=== PATIENT | female | born 1990 | race Two or more races ===

== ENCOUNTER 2017-09-26 15:55 | Emergency (ER) | payer MEDICAID ==
[~2017-09-26] VITALS: Ht 165.1 cm; Wt 49.0 kg
[2017-09-26 16:12] VITALS: BP 131/95
[2017-09-26] MEDS ORDERED: CYCL-1 PO (18:53)
[2017-09-26] MEDS ORDERED: LIDO30CR23 TOP (18:53)
== END 2017-09-26 19:04 | disposition home or self-care (01) ==
LOC: ER 15:55
DX: S20.212A Contusion of left front wall of thorax, initial encounter (principal); M43.6 Torticollis; F12.10 Cannabis abuse, uncomplicated; V49.9XXA Car occupant (driver) (passenger) injured in unspecified traffic accident, initial encounter; Y93.89 Activity, other specified; Y92.89 Other specified places as the place of occurrence of the external cause; Y99.8 Other external cause status
CPT/HCPCS: 36415; 71046; 76882; 84484; 99285

== ENCOUNTER 2019-11-17 21:48 | Emergency (ER) | payer MEDICAID ==
[~2019-11-17] VITALS: Ht 165.1 cm; Wt 65.9 kg
[~2019-11-17 21:48] MED LIST: CYCL-1 PO; LIDO30CR23 TOP
[2019-11-17] MEDS ORDERED: normal saline 1000ml 1,000 ML IV ONE (22:55)
[2019-11-17 23:46] VITALS: BP 120/70
== END 2019-11-17 23:48 ==
LOC: ER 21:49
DX: S00.83XA Contusion of other part of head, initial encounter (principal); M54.2 Cervicalgia; F12.90 Cannabis use, unspecified, uncomplicated; Z72.89 Other problems related to lifestyle; Z79.899 Other long term (current) drug therapy; V98.8XXA Other specified transport accidents, initial encounter; Y93.89 Activity, other specified; Y92.89 Other specified places as the place of occurrence of the external cause; Y99.8 Other external cause status
CPT/HCPCS: 70450; 72125; 93005; 99285; J7030

== ENCOUNTER 2023-10-27 15:43 | Inpatient (IN) | payer MEDICAID ==
[~2023-10-27] VITALS: Ht 165.1 cm; Wt 50.1 kg
[~2023-10-27 15:43] MED LIST changes: +LIDO30CR TOP; -LIDO30CR23 TOP
[2023-10-27 17:00] LABS: APTT 24 SECONDS (22-32); INR 1.1 INR; PROTHROMBIN TIME 12.2 SECONDS (9.0-12.0)
[2023-10-27 17:24] LABS: ALANINE AMINOTRANSFERASE 19 U/L (12-78); ALBUMIN 2.2 G/DL (3.4-5.0); ALBUMIN/GLOBULIN RATIO 0.4 (1.1-1.5); ALKALINE PHOSPHATASE 106 IU/L (46-116); ANION GAP 10 (8-16); ASPARTATE AMINO TRANSFERASE 33 U/L (10-37); BLOOD UREA NITROGEN 3 MG/DL (7-18); BUN/CREATININE RATIO 4.7 (10.0-20.0); CHLORIDE 104 MMOL/L (99-107); CREATININE 0.64 MG/DL (0.40-0.90); GLUCOSE 155 MG/DL (70-104); LIPASE 58 U/L (16-77); POTASSIUM 3.3 MMOL/L (3.5-5.1); SODIUM 135 MMOL/L (135-145); TOTAL CARBON DIOXIDE 20.8 MMOL/L (24-32); TOTAL PROTEIN 7.6 G/DL (6.4-8.2); eCRCL 116 ML/MIN; eGFR > 90 ML/MIN
[2023-10-27 17:48] LABS: BASOPHILS % (AUTO) 0.3 % (0-1); EOSINOPHILS # (AUTO) 0.1 X10'3 (0-0.9); EOSINOPHILS % (AUTO) 1.1 % (0-6); LYMPHOCYTES # (AUTO) 0.9 X10'3 (1.1-4.8); LYMPHOCYTES % (AUTO) 19.6 % (21-51); MEAN PLATELET VOLUME 8.4 FL (7.4-10.4); MONOCYTES # (AUTO) 0.4 X10'3 (0-0.9); MONOCYTES % (AUTO) 8.3 % (2-12); NEUTROPHILS # (AUTO) 3.4 X10'3 (1.8-7.7); NEUTROPHILS % (AUTO) 70.7 % (42-75); PLATELET COUNT 434 X10'3 (140-440); WHITE BLOOD COUNT 4.7 X10'3 (4.5-11.0)
[2023-10-27 17:50] LABS: MEAN CORPUSCULAR HEMOGLOBIN 21.9 PG (27.0-31.0); MEAN CORPUSCULAR HGB CONC 32.2 g/dL (33.0-36.5); MEAN CORPUSCULAR VOLUME 68.1 FL (78-98); RED BLOOD COUNT 2.78 X10'6 (4.20-5.60); RED CELL DISTRIBUTION WIDTH 19.9 % (11.5-14.5)
[2023-10-27 17:56] LABS: HEMOGLOBIN 6.1 g/dl (12.0-16.0)
[2023-10-27 20:02] LABS: BILIRUBIN,URINE MODERATE (Neg); CLARITY,URINE SLIGHTLY CLOUDY (Clear); GLUCOSE, URINE NEGATIVE (Neg); KETONES,URINE NEGATIVE (Neg); LEUKOCYTE ESTERASE ,URINE TRACE (Neg); NITRITES, URINE NEGATIVE (Neg); OCCULT BLOOD,URINE NEGATIVE (Neg); PROTEIN,URINE TRACE mg/dl (Neg); UROBILINOGEN,URINE 0.2 E.U/dL (0.2-1.0)
[2023-10-27 20:03] LABS: URINE HCG NEGATIVE (NEG)
[2023-10-27 20:04] LABS: COLOR,URINE DARK YELLOW (Yellow); UA COLLECTION TYPE CLN CATCH MIDSTREAM
[2023-10-27 20:20] LABS: BACTERIA,URINE FEW /HPF (Neg); MUCUS STRANDS FEW /LPF (Neg); SQUAMOUS EPITHELIAL CELL,UR FEW /LPF (FEW)
[2023-10-27] MEDS ORDERED: mag hydrox/Alum hydrox/simeth 30ml oral suspension PO PRN (21:55)
[2023-10-27] MEDS ORDERED: magnesium hydroxide 30ml (MOM) UD suspension PO PRN (21:55)
[2023-10-27] MEDS ORDERED: magnesium 2GM in 50ml NS 50 ML IV PRN (21:55)
[2023-10-27] MEDS ORDERED: magnesium Cl slow-release 64mg tablet PO PRN (21:55)
[2023-10-27] MEDS ORDERED: magnesium 4gm in 100ml NS 100 ML IV PRN (21:55)
[2023-10-27] MEDS: morphine 2 MG/ML inj. syringe IV ONE (21:55)
[2023-10-27] MEDS ORDERED: potassium Cl 40MEQ/1/2NS 520ml 520 ML IV PRN (21:55)
[2023-10-27] MEDS ORDERED: ondansetron/PF 4mg/2ml inj IV PRN (21:55)
[2023-10-27] MEDS ORDERED: furosemide 10 MG/1 ML 10ml inj IV ONE (21:55)
[2023-10-27 22:25] LABS: MAGNESIUM 1.6 MG/DL (1.5-2.4); PHOSPHORUS 3.1 MG/DL (2.3-4.5)
[2023-10-27 22:50] VITALS: BP 100/71; PULSE 107; RESP 20; TEMP 98.3
[2023-10-27 22:52] VITALS: BP 100/71; PULSE 105; RESP 18; TEMP 98.3
[2023-10-27 23:10] VITALS: BP 112/67; PULSE 104; RESP 20; TEMP 98.2
[2023-10-27] MEDS ORDERED: [UNRECOGNIZED DRUG - CODE] (23:13)
[2023-10-28] VITALS (11 sets, daily range): BP systolic 108–127; BP diastolic 71–92; PULSE 89–106; RESP 16–26; TEMP 97.9–98.6; O2SAT 96–99
[2023-10-28] MEDS: CefTRIAXone/D5W-Rocephin 1gm 50 ML IV SCH (00:02)
[2023-10-28] MEDS: furosemide 10 MG/1 ML 10ml inj IV ONE (00:53)
[2023-10-28] MEDS: morphine 2 MG/ML inj. syringe IV PRN (00:54)
[2023-10-28] MEDS: potassium Cl 20 mEq SR tablet PO PRN ×2 (00:54→05:35)
[2023-10-28 04:03] LABS: MEAN CORPUSCULAR VOLUME 74.3 FL (78-98); RED CELL DISTRIBUTION WIDTH 21.6 % (11.5-14.5); WHITE BLOOD COUNT 5.6 X10'3 (4.5-11.0)
[2023-10-28 04:05] LABS: BASOPHILS # (AUTO) 0.1 X10'3 (0-0.2); BASOPHILS % (AUTO) 1.8 % (0-1); EOSINOPHILS # (AUTO) 0.1 X10'3 (0-0.9); EOSINOPHILS % (AUTO) 2.5 % (0-6); LYMPHOCYTES # (AUTO) 1.2 X10'3 (1.1-4.8); LYMPHOCYTES % (AUTO) 21.2 % (21-51); MEAN CORPUSCULAR HEMOGLOBIN 22.3 PG (27.0-31.0); MEAN PLATELET VOLUME 8.2 FL (7.4-10.4); MONOCYTES # (AUTO) 0.7 X10'3 (0-0.9); MONOCYTES % (AUTO) 12.3 % (2-12); NEUTROPHILS # (AUTO) 3.5 X10'3 (1.8-7.7); NEUTROPHILS % (AUTO) 62.2 % (42-75); PLATELET COUNT 320 X10'3 (140-440); RED BLOOD COUNT 2.89 X10'6 (4.20-5.60)
[2023-10-28 04:08] LABS: HEMOGLOBIN 6.4 g/dl (12.0-16.0)
[2023-10-28 04:09] LABS: HEMATOCRIT 21.4 % (35.0-45.0)
[2023-10-28 04:15] LABS: ALANINE AMINOTRANSFERASE 13 U/L (12-78); ALBUMIN/GLOBULIN RATIO 0.4 (1.1-1.5); ALKALINE PHOSPHATASE 99 IU/L (46-116); ANION GAP 11 (8-16); ASPARTATE AMINO TRANSFERASE 30 U/L (10-37); BILIRUBIN,TOTAL 1.9 MG/DL (0.1-1.0); BLOOD UREA NITROGEN 2 MG/DL (7-18); BUN/CREATININE RATIO 3.5 (10.0-20.0); CALCIUM 7.6 MG/DL (8.5-10.1); CHLORIDE 102 MMOL/L (99-107); CREATININE 0.57 MG/DL (0.40-0.90); GLUCOSE 113 MG/DL (70-104); SODIUM 134 MMOL/L (135-145); TOTAL CARBON DIOXIDE 21.4 MMOL/L (24-32); eCRCL 130 ML/MIN; eGFR > 90 ML/MIN
[2023-10-28 04:25] LABS: POTASSIUM 2.9 MMOL/L (3.5-5.1)
[2023-10-28 05:01] LABS: ANISOCYTOSIS 3+; MICROCYTOSIS 1+; PLATELET ESTIMATE NORMAL
[2023-10-28 05:02] LABS: HYPOCHROMASIA 1+
[2023-10-28 05:03] LABS: ELLIPTOCYTES FEW; TEAR DROP CELLS FEW
[2023-10-28] MEDS ORDERED: spironolactone 25 MG tablet PO SCH (08:30)
[2023-10-28 08:40] LABS: HEMOGLOBIN A1C 4.6 % (4.5-6.2)
[2023-10-28] MEDS: pantoprazole 40 MG vial IV SCH (08:52)
[2023-10-28] MEDS: K and/or MAG REPLACEMENT MC SCH (08:53)
[2023-10-28] MEDS: furosemide 10 MG/1 ML 10ml inj IV SCH ×2 (09:41→22:58)
[2023-10-28] MEDS: spironolactone 25 MG tablet PO SCH (09:42)
[2023-10-28 13:14] LABS: BASOPHILS % (AUTO) 0.6 % (0-1); EOSINOPHILS # (AUTO) 0.1 X10'3 (0-0.9); HEMATOCRIT 25.9 % (35.0-45.0); LYMPHOCYTES # (AUTO) 1.1 X10'3 (1.1-4.8); LYMPHOCYTES % (AUTO) 19.2 % (21-51); MEAN CORPUSCULAR HEMOGLOBIN 23.8 PG (27.0-31.0); MEAN CORPUSCULAR HGB CONC 30.7 g/dL (33.0-36.5); MEAN CORPUSCULAR VOLUME 77.5 FL (78-98); MEAN PLATELET VOLUME 8.1 FL (7.4-10.4); MONOCYTES # (AUTO) 0.6 X10'3 (0-0.9); MONOCYTES % (AUTO) 10.3 % (2-12); NEUTROPHILS # (AUTO) 3.9 X10'3 (1.8-7.7); NEUTROPHILS % (AUTO) 67.9 % (42-75); PLATELET COUNT 304 X10'3 (140-440); RED BLOOD COUNT 3.35 X10'6 (4.20-5.60); RED CELL DISTRIBUTION WIDTH 24.5 % (11.5-14.5); WHITE BLOOD COUNT 5.7 X10'3 (4.5-11.0)
[2023-10-28] MEDS ORDERED: BENZ-111 PO (16:38)
[2023-10-28 19:39] LABS: HEMATOCRIT 27.5 % (35.0-45.0); HEMOGLOBIN 8.7 g/dl (12.0-16.0); MEAN CORPUSCULAR HEMOGLOBIN 24.3 PG (27.0-31.0); MEAN CORPUSCULAR HGB CONC 31.6 g/dL (33.0-36.5); MEAN CORPUSCULAR VOLUME 76.9 FL (78-98); MEAN PLATELET VOLUME 8.1 FL (7.4-10.4); PLATELET COUNT 306 X10'3 (140-440); RED BLOOD COUNT 3.58 X10'6 (4.20-5.60); RED CELL DISTRIBUTION WIDTH 24.3 % (11.5-14.5); WHITE BLOOD COUNT 6.6 X10'3 (4.5-11.0)
[2023-10-28] MEDS: propranolol 10mg tablet PO SCH (20:54)
[2023-10-29] VITALS (7 sets, daily range): BP systolic 97–115; BP diastolic 61–72; PULSE 80–93; RESP 15–19; TEMP 98–98.7; O2SAT 95–100
[2023-10-29 06:58] LABS: EOSINOPHILS # (AUTO) 0.2 X10'3 (0-0.9); NEUTROPHILS # (AUTO) 4.3 X10'3 (1.8-7.7)
[2023-10-29 07:01] LABS: ABSOLUTE RETICS # 85400 /CUMM (23000-93000); BASOPHILS % (AUTO) 0.2 % (0-1); EOSINOPHILS % (AUTO) 2.6 % (0-6); HEMATOCRIT 26.4 % (35.0-45.0); HEMOGLOBIN 8.2 g/dl (12.0-16.0); LYMPHOCYTES # (AUTO) 1.2 X10'3 (1.1-4.8); LYMPHOCYTES % (AUTO) 18.1 % (21-51); MEAN CORPUSCULAR HEMOGLOBIN 23.9 PG (27.0-31.0); MEAN CORPUSCULAR VOLUME 77.1 FL (78-98); MEAN PLATELET VOLUME 8.2 FL (7.4-10.4); MONOCYTES # (AUTO) 0.8 X10'3 (0-0.9); MONOCYTES % (AUTO) 12.3 % (2-12); NEUTROPHILS % (AUTO) 66.8 % (42-75); PLATELET COUNT 299 X10'3 (140-440); RED BLOOD COUNT 3.43 X10'6 (4.20-5.60); RED CELL DISTRIBUTION WIDTH 24.2 % (11.5-14.5); RETICULOCYTE % (AUTO) 2.5 % (0.5-1.5); WHITE BLOOD COUNT 6.4 X10'3 (4.5-11.0)
[2023-10-29 07:03] LABS: HEMATOCRIT 26.6 % (35.0-45.0); MEAN CORPUSCULAR HGB CONC 30.9 g/dL (33.0-36.5); MEAN CORPUSCULAR VOLUME 77.5 FL (78-98); MEAN PLATELET VOLUME 8.6 FL (7.4-10.4); PLATELET COUNT 307 X10'3 (140-440); RED BLOOD COUNT 3.43 X10'6 (4.20-5.60); RED CELL DISTRIBUTION WIDTH 24.4 % (11.5-14.5); WHITE BLOOD COUNT 6.3 X10'3 (4.5-11.0)
[2023-10-29 07:22] LABS: % IRON SATURATION 6 % (11-46); IRON 24 UG/DL (49-151); TOTAL IRON BINDING CAPACITY 396 UG/DL (259-388)
[2023-10-29 07:41] LABS: ALANINE AMINOTRANSFERASE 9 U/L (12-78); ALBUMIN 1.9 G/DL (3.4-5.0); ALBUMIN/GLOBULIN RATIO 0.4 (1.1-1.5); ALKALINE PHOSPHATASE 95 IU/L (46-116); ANION GAP 6 (8-16); ASPARTATE AMINO TRANSFERASE 30 U/L (10-37); BILIRUBIN,DIRECT 1.7 MG/DL (0-0.3); BILIRUBIN,TOTAL 2.4 MG/DL (0.1-1.0); BLOOD UREA NITROGEN 2 MG/DL (7-18); BUN/CREATININE RATIO 3.2 (10.0-20.0); CALCIUM 7.9 MG/DL (8.5-10.1); CHLORIDE 104 MMOL/L (99-107); CREATININE 0.63 MG/DL (0.40-0.90); FERRITIN 17 NG/ML (8-252); GLUCOSE 91 MG/DL (70-104); SODIUM 134 MMOL/L (135-145); TOTAL PROTEIN 6.9 G/DL (6.4-8.2); eCRCL 107 ML/MIN; eGFR > 90 ML/MIN
[2023-10-29 08:54] LABS: PLATELET ESTIMATE NORMAL
[2023-10-29 08:55] LABS: ANISOCYTOSIS 3+; HYPOCHROMASIA 1+; MICROCYTOSIS 1+; POLYCHROMASIA 1+
[2023-10-29 09:57] LABS: OCCULT BLOOD STOOL NEGATIVE (Neg)
[2023-10-29] MEDS: iron sucrose complex injection 300 MG in normal saline 250ml IV soln 250 ML IV SCH (11:11)
[2023-10-29] MEDS: HYDROcodone/acetaminophen 10/325mg tab PO PRN (11:26)
[2023-10-29 12:19] LABS: ALBUMIN,BODY FLUID 0.7 G/DL; GLUCOSE,BODY FLUID 114 MG/DL; LDH,BODY FLUID 41 U/L
[2023-10-29 12:25] LABS: HBSAG SCREEN Negative (Negative); HEPATITIS C VIRUS ANTIBODY Non Reactive (Non Reactive)
[2023-10-29 13:49] LABS: LYMPHOCYTES,BODY FLUID 47 %; MONOCYTES,BODY FLUID 51 %; NEUTROPHILS,BODY FLUID 2 %
[2023-10-29 13:52] LABS: BF MESOTHELIAL CELLS MODERATE; BF RBC COUNT 66 /CU MM; BF WBC COUNT 5 /CU MM (0-1000); BFAPPEAR CLEAR; BFCOLOR YELLOW; BFVOLUME 58 ML
[2023-10-29] MEDS: albumin (human) 25% 100 ML IV solution IV ONE (14:05)
[2023-10-29 14:42] LABS: BFSOURCE OTHER
[2023-10-29 16:57] LABS: HEMATOCRIT 27.4 % (35.0-45.0); HEMOGLOBIN 8.5 g/dl (12.0-16.0); MEAN CORPUSCULAR HEMOGLOBIN 24.3 PG (27.0-31.0); MEAN CORPUSCULAR HGB CONC 31.1 g/dL (33.0-36.5); MEAN PLATELET VOLUME 8.1 FL (7.4-10.4); PLATELET COUNT 301 X10'3 (140-440); RED BLOOD COUNT 3.51 X10'6 (4.20-5.60); RED CELL DISTRIBUTION WIDTH 24.7 % (11.5-14.5); WHITE BLOOD COUNT 5.2 X10'3 (4.5-11.0)
[2023-10-29] MEDS: morphine 2 MG/ML inj. syringe IV PRN (17:14)
[2023-10-30 07:17] LABS: BASOPHILS % (AUTO) 0.3 % (0-1); EOSINOPHILS # (AUTO) 0.3 X10'3 (0-0.9); HEMATOCRIT 27.8 % (35.0-45.0); HEMOGLOBIN 8.3 g/dl (12.0-16.0); LYMPHOCYTES # (AUTO) 1.2 X10'3 (1.1-4.8); MEAN CORPUSCULAR HEMOGLOBIN 23.4 PG (27.0-31.0); MEAN CORPUSCULAR HGB CONC 29.8 g/dL (33.0-36.5); MEAN CORPUSCULAR VOLUME 78.6 FL (78-98); MONOCYTES # (AUTO) 0.7 X10'3 (0-0.9); MONOCYTES % (AUTO) 11.4 % (2-12); NEUTROPHILS # (AUTO) 4.3 X10'3 (1.8-7.7); NEUTROPHILS % (AUTO) 66.3 % (42-75); PLATELET COUNT 293 X10'3 (140-440); RED BLOOD COUNT 3.54 X10'6 (4.20-5.60); RED CELL DISTRIBUTION WIDTH 25.6 % (11.5-14.5); WHITE BLOOD COUNT 6.5 X10'3 (4.5-11.0)
[2023-10-30 07:18] LABS: HEMATOCRIT 27.3 % (35.0-45.0); HEMOGLOBIN 8.3 g/dl (12.0-16.0); MEAN CORPUSCULAR HEMOGLOBIN 23.8 PG (27.0-31.0); MEAN CORPUSCULAR HGB CONC 30.5 g/dL (33.0-36.5); MEAN PLATELET VOLUME 8.3 FL (7.4-10.4); PLATELET COUNT 295 X10'3 (140-440); RED CELL DISTRIBUTION WIDTH 25.1 % (11.5-14.5); WHITE BLOOD COUNT 6.5 X10'3 (4.5-11.0)
[2023-10-30 07:34] LABS: ALANINE AMINOTRANSFERASE 15 U/L (12-78); ALBUMIN 2.2 G/DL (3.4-5.0); ALBUMIN/GLOBULIN RATIO 0.5 (1.1-1.5); ALKALINE PHOSPHATASE 83 IU/L (46-116); ANION GAP 6 (8-16); ASPARTATE AMINO TRANSFERASE 27 U/L (10-37); BILIRUBIN,TOTAL 1.9 MG/DL (0.1-1.0); BLOOD UREA NITROGEN 2 MG/DL (7-18); BUN/CREATININE RATIO 3.8 (10.0-20.0); CALCIUM 8.1 MG/DL (8.5-10.1); CHLORIDE 101 MMOL/L (99-107); CREATININE 0.52 MG/DL (0.40-0.90); GLUCOSE 109 MG/DL (70-104); POTASSIUM 3.3 MMOL/L (3.5-5.1); SODIUM 135 MMOL/L (135-145); TOTAL CARBON DIOXIDE 28.4 MMOL/L (24-32); TOTAL PROTEIN 6.9 G/DL (6.4-8.2); eCRCL 127 ML/MIN; eGFR > 90 ML/MIN
[2023-10-30 07:44] LABS: ANISOCYTOSIS 3+; MICROCYTOSIS 1+; PLATELET ESTIMATE NORMAL; POIKILOCYTOSIS FEW; POLYCHROMASIA FEW
[2023-10-30 08:00] VITALS: RESP 16; O2SAT 98
[2023-10-30] MEDS: pantoprazole 40mg Tablet.DR PO SCH (08:39)
[2023-10-30 08:57] VITALS: BP 153/100; PULSE 108; RESP 23; TEMP 99.3; O2SAT 100
[2023-10-30 11:00] VITALS: BP 92/65; PULSE 76; RESP 16; TEMP 97.6; O2SAT 96
[2023-10-30 11:26] VITALS: RESP 18
[2023-10-30] MEDS ORDERED: SPIR25TA PO (11:51)
[2023-10-30] MEDS ORDERED: ZOF4I IV (11:51)
[2023-10-30] MEDS ORDERED: PROP10TA10 PO (11:51)
[2023-10-30] MEDS ORDERED: PANT40TA54 PO (11:51)
[2023-10-30] MEDS ORDERED: HYDR-3972 PO (12:10)
[2023-10-30] MEDS ORDERED: spironolactone 50 MG tablet PO SCH (14:17)
== END 2023-10-30 14:20 | disposition home or self-care (01) | DRG 280 ==
LOC: ER 15:43 → UNDOADMIN 21:55 → ED HOLD 21:55 → PCU 3S 10-28 14:06
PROVIDERS: ADMIT Internal Medicine Critical Care Medicine; ATTEND Family Medicine
PROC: 30233N1 Transfusion of Nonautologous Red Blood Cells into Peripheral Vein, Percutaneous Approach (ICD-10-PCS; 2023-10-27)
PROC: 0W9G3ZZ Drainage of Peritoneal Cavity, Percutaneous Approach (ICD-10-PCS; principal; 2023-10-29)
DX: K70.31 Alcoholic cirrhosis of liver with ascites (principal); K72.90 Hepatic failure, unspecified without coma; K92.2 Gastrointestinal hemorrhage, unspecified; F31.9 Bipolar disorder, unspecified; D50.9 Iron deficiency anemia, unspecified; E87.6 Hypokalemia
CPT/HCPCS: 36415; 36430; 49083; 71045; 74176; 80053; 81001; 81025; 82042; 82103; 82248; 82272; 82390; 82728; 82945; 83036; 83540; 83550; 83615; 83690; 83735; 84100; 84132; 84157; 85008; 85025; 85027; 85045; 85610; 85730; 86803; 86885; 86900; 86901; 86920; 87070; 87075; 87081; 87088; 87340; 87522; 89051; 93005; 99285; C9113; G0378; J0696; J1756; J1940; J2270; J7040; J7050; P9016; P9047

== ENCOUNTER 2024-02-08 14:18 | Inpatient (IN) | payer MEDICAID ==
[~2024-02-08] VITALS: Ht 165.1 cm; Wt 50.5 kg
[2024-02-08] VITALS (7 sets, daily range): BP systolic 107–118; BP diastolic 70–80; PULSE 98–116; RESP 15–19; TEMP 98.2–99.5; O2SAT 98–99
[~2024-02-08 14:18] MED LIST changes: +BENZ-111 PO; -CYCL-1 PO; +HYDR-3972 PO; -LIDO30CR TOP; +PANT40TA54 PO; +PROP10TA10 PO; +SPIR25TA PO; +ZOF4I IV; +[UNRECOGNIZED DRUG - CODE]
[2024-02-08 15:08] LABS: BASOPHILS % (AUTO) 0.2 % (0-1); EOSINOPHILS # (AUTO) 0.1 X10'3 (0-0.9); EOSINOPHILS % (AUTO) 0.8 % (0-6); HEMATOCRIT 24.3 % (35.0-45.0); HEMOGLOBIN 7.8 g/dl (12.0-16.0); LYMPHOCYTES # (AUTO) 1.1 X10'3 (1.1-4.8); LYMPHOCYTES % (AUTO) 13.2 % (21-51); MEAN CORPUSCULAR HEMOGLOBIN 30.3 PG (27.0-31.0); MEAN CORPUSCULAR HGB CONC 32.2 g/dL (33.0-36.5); MEAN PLATELET VOLUME 9.6 FL (7.4-10.4); MONOCYTES # (AUTO) 0.6 X10'3 (0-0.9); MONOCYTES % (AUTO) 7.2 % (2-12); NEUTROPHILS # (AUTO) 6.7 X10'3 (1.8-7.7); NEUTROPHILS % (AUTO) 78.6 % (42-75); PLATELET COUNT 156 X10'3 (140-440); RED BLOOD COUNT 2.58 X10'6 (4.20-5.60); RED CELL DISTRIBUTION WIDTH 14.8 % (11.5-14.5); WHITE BLOOD COUNT 8.5 X10'3 (4.5-11.0)
[2024-02-08 15:22] LABS: ALANINE AMINOTRANSFERASE 24 U/L (12-78); ALBUMIN 3.2 G/DL (3.4-5.0); ALBUMIN/GLOBULIN RATIO 0.7 (1.1-1.5); ALKALINE PHOSPHATASE 76 IU/L (46-116); ANION GAP 13 (8-16); ASPARTATE AMINO TRANSFERASE 43 U/L (10-37); BILIRUBIN,TOTAL 2.2 MG/DL (0.1-1.0); BLOOD UREA NITROGEN 14 MG/DL (7-18); BUN/CREATININE RATIO 25.5 (10.0-20.0); CALCIUM 8.8 MG/DL (8.5-10.1); CHLORIDE 100 MMOL/L (99-107); CREATININE 0.55 MG/DL (0.40-0.90); GLUCOSE 96 MG/DL (70-104); POTASSIUM 4.1 MMOL/L (3.5-5.1); SODIUM 136 MMOL/L (135-145); TOTAL CARBON DIOXIDE 23.1 MMOL/L (24-32); TOTAL PROTEIN 7.7 G/DL (6.4-8.2); eCRCL 118 ML/MIN; eGFR > 90 ML/MIN
[2024-02-08 15:24] LABS: AMYLASE 18 U/L (25-115); APTT 25 SECONDS (22-32); INR 1.2 INR; LIPASE 35 U/L (16-77); PROTHROMBIN TIME 12.4 SECONDS (9.0-12.0)
[2024-02-08] MEDS ORDERED: potassium Cl 40MEQ/1/2NS 520ml 520 ML IV PRN (17:55)
[2024-02-08] MEDS ORDERED: acetaminophen 325mg tablet PO PRN ×2 (17:55)
[2024-02-08] MEDS ORDERED: magnesium sulf-water 2g/50mL 50 ML IV PRN (17:55)
[2024-02-08] MEDS ORDERED: morphine 2 MG/ML inj. syringe IV PRN ×2 (17:55)
[2024-02-08] MEDS ORDERED: potassium Cl 20 mEq SR tablet PO PRN ×2 (17:55)
[2024-02-08] MEDS ORDERED: ondansetron/PF 4mg/2ml inj IV PRN (17:55)
[2024-02-08] MEDS ORDERED: HYDROcodone/acetaminophen 5mg/325mg tablet PO PRN (17:55)
[2024-02-08] MEDS: normal saline 1000ml 1,000 ML IV SCH (18:50)
[2024-02-08] MEDS: pantoprazole 40 MG vial IV ONE (18:50)
[2024-02-08] MEDS: normal saline 1000ml 1,000 ML IVB ONE (18:50)
[2024-02-08 19:00] LABS: OCCULT BLOOD STOOL POSITIVE (Neg)
[2024-02-08 19:34] LABS: OCCULT BLOOD STOOL POSITIVE (Neg)
[2024-02-08] MEDS ORDERED: pantoprazole 40MG/NS 100ML BAG 100 ML IV SCH (21:00)
[2024-02-08] MEDS ORDERED: LORazepam 2 mg/ml vial IV PRN (21:45)
[2024-02-08] MEDS: LORazepam 1 MG tablet PO PRN (23:07)
[2024-02-09] VITALS (25 sets, daily range): BP systolic 94–125; BP diastolic 55–84; PULSE 86–109; RESP 15–25; TEMP 97.6–98.6; O2SAT 97–100
[2024-02-09] MEDS ORDERED: NO HOME MEDS (01:53)
[2024-02-09] MEDS: pantoprazole 40MG/NS 100ML BAG 100 ML IV SCH (04:32)
[2024-02-09 06:02] LABS: BASOPHILS % (AUTO) 0.1 % (0-1); EOSINOPHILS # (AUTO) 0.2 X10'3 (0-0.9); EOSINOPHILS % (AUTO) 3.3 % (0-6); HEMATOCRIT 22.7 % (35.0-45.0); HEMOGLOBIN 7.5 g/dl (12.0-16.0); LYMPHOCYTES % (AUTO) 13.5 % (21-51); MEAN CORPUSCULAR HEMOGLOBIN 30.8 PG (27.0-31.0); MEAN CORPUSCULAR HGB CONC 33.2 g/dL (33.0-36.5); MEAN CORPUSCULAR VOLUME 92.8 FL (78-98); MEAN PLATELET VOLUME 9.9 FL (7.4-10.4); MONOCYTES # (AUTO) 0.6 X10'3 (0-0.9); MONOCYTES % (AUTO) 7.6 % (2-12); NEUTROPHILS # (AUTO) 5.6 X10'3 (1.8-7.7); NEUTROPHILS % (AUTO) 75.5 % (42-75); PLATELET COUNT 75 X10'3 (140-440); RED BLOOD COUNT 2.45 X10'6 (4.20-5.60); RED CELL DISTRIBUTION WIDTH 14.7 % (11.5-14.5); WHITE BLOOD COUNT 7.4 X10'3 (4.5-11.0)
[2024-02-09 06:14] LABS: MAGNESIUM 1.6 MG/DL (1.5-2.4); PHOSPHORUS 2.3 MG/DL (2.3-4.5)
[2024-02-09] MEDS: multivitamins, therapeutics tablet PO SCH (07:57)
[2024-02-09] MEDS ORDERED: LIDOcaine 2% Viscous 15ml cup ONE (10:39)
[2024-02-09] MEDS ORDERED: fentaNYL/PF 50MCG/1 ML 2ML syringe ONE (11:08)
[2024-02-09] MEDS ORDERED: MIDAZolam 1 MG/ML 5ML VIAL ONE ×2 (11:08→11:22)
[2024-02-09] MEDS ORDERED: simethicone 40mg/0.6ml oral drops 30ml ONE (11:17)
[2024-02-09] MEDS: CefTRIAXone 2gm/D5W 50ml BAG 50 ML IV SCH (15:12)
[2024-02-09] MEDS: octreotide inj. 500 MCG in normal saline 100ml IV soln 97.5 ML IV SCH (15:14)
[2024-02-09 15:46] LABS: BASOPHILS % (AUTO) 0.1 % (0-1); EOSINOPHILS # (AUTO) 0.2 X10'3 (0-0.9); EOSINOPHILS % (AUTO) 3.1 % (0-6); HEMATOCRIT 22.8 % (35.0-45.0); HEMOGLOBIN 7.7 g/dl (12.0-16.0); LYMPHOCYTES # (AUTO) 0.7 X10'3 (1.1-4.8); LYMPHOCYTES % (AUTO) 14.6 % (21-51); MEAN CORPUSCULAR HEMOGLOBIN 31.2 PG (27.0-31.0); MEAN CORPUSCULAR HGB CONC 33.7 g/dL (33.0-36.5); MEAN CORPUSCULAR VOLUME 92.8 FL (78-98); MEAN PLATELET VOLUME 9.4 FL (7.4-10.4); MONOCYTES # (AUTO) 0.4 X10'3 (0-0.9); MONOCYTES % (AUTO) 7.7 % (2-12); NEUTROPHILS # (AUTO) 3.7 X10'3 (1.8-7.7); NEUTROPHILS % (AUTO) 74.5 % (42-75); PLATELET COUNT 63 X10'3 (140-440); RED BLOOD COUNT 2.46 X10'6 (4.20-5.60); RED CELL DISTRIBUTION WIDTH 14.8 % (11.5-14.5)
[2024-02-09 21:04] LABS: BILIRUBIN,URINE NEGATIVE (Neg); CLARITY,URINE CLEAR (Clear); COLOR,URINE YELLOW (Yellow); GLUCOSE, URINE 250 mg/dl (Neg); KETONES,URINE 15 mg/dl (Neg); LEUKOCYTE ESTERASE ,URINE TRACE (Neg); NITRITES, URINE NEGATIVE (Neg); OCCULT BLOOD,URINE TRACE-INTACT (Neg); PROTEIN,URINE NEGATIVE (Neg)
[2024-02-09 21:07] LABS: UA COLLECTION TYPE CLN CATCH MIDSTREAM; URINE HCG NEGATIVE (NEG)
[2024-02-09 21:23] LABS: BACTERIA,URINE FEW /HPF (Neg); MUCUS STRANDS NONE SEEN /LPF (Neg); RBC,URINE 0-2 /HPF (0-2); SQUAMOUS EPITHELIAL CELL,UR FEW /LPF (FEW); WBC,URINE 0-4 /HPF (0-4)
[2024-02-10 02:00] VITALS: BP 108/68; PULSE 105; RESP 18; TEMP 97.8; O2SAT 99
[2024-02-10 06:00] VITALS: BP 126/69; PULSE 89; RESP 16; TEMP 97.5; O2SAT 96
[2024-02-10 06:56] LABS: BASOPHILS % (AUTO) 0.1 % (0-1); EOSINOPHILS # (AUTO) 0.2 X10'3 (0-0.9); HEMOGLOBIN 8.2 g/dl (12.0-16.0); LYMPHOCYTES # (AUTO) 0.6 X10'3 (1.1-4.8); MONOCYTES # (AUTO) 0.4 X10'3 (0-0.9); MONOCYTES % (AUTO) 8.9 % (2-12); NEUTROPHILS # (AUTO) 3.5 X10'3 (1.8-7.7); WHITE BLOOD COUNT 4.6 X10'3 (4.5-11.0)
[2024-02-10 06:59] LABS: EOSINOPHILS % (AUTO) 3.7 % (0-6); HEMATOCRIT 25.1 % (35.0-45.0); MEAN CORPUSCULAR HEMOGLOBIN 30.4 PG (27.0-31.0); MEAN CORPUSCULAR HGB CONC 32.8 g/dL (33.0-36.5); MEAN CORPUSCULAR VOLUME 92.7 FL (78-98); NEUTROPHILS % (AUTO) 75.3 % (42-75); PLATELET COUNT 72 X10'3 (140-440); RED BLOOD COUNT 2.71 X10'6 (4.20-5.60); RED CELL DISTRIBUTION WIDTH 14.5 % (11.5-14.5)
[2024-02-10 07:05] LABS: MAGNESIUM 1.4 MG/DL (1.5-2.4); PHOSPHORUS 2.4 MG/DL (2.3-4.5)
[2024-02-10 08:00] VITALS: RESP 22; O2SAT 97
[2024-02-10 11:00] VITALS: BP 106/78; PULSE 98; RESP 19; TEMP 97.7; O2SAT 100
[2024-02-10 15:00] VITALS: BP 112/70; PULSE 104; RESP 19; TEMP 97.7; O2SAT 100
[2024-02-10 15:24] LABS: BASOPHILS % (AUTO) 0.1 % (0-1); EOSINOPHILS # (AUTO) 0.1 X10'3 (0-0.9); EOSINOPHILS % (AUTO) 1.9 % (0-6); HEMATOCRIT 24.5 % (35.0-45.0); HEMOGLOBIN 8.3 g/dl (12.0-16.0); LYMPHOCYTES # (AUTO) 0.5 X10'3 (1.1-4.8); LYMPHOCYTES % (AUTO) 9.9 % (21-51); MEAN CORPUSCULAR HEMOGLOBIN 31.6 PG (27.0-31.0); MEAN CORPUSCULAR HGB CONC 33.7 g/dL (33.0-36.5); MEAN CORPUSCULAR VOLUME 93.9 FL (78-98); MEAN PLATELET VOLUME 9.8 FL (7.4-10.4); MONOCYTES # (AUTO) 0.5 X10'3 (0-0.9); MONOCYTES % (AUTO) 8.3 % (2-12); NEUTROPHILS # (AUTO) 4.4 X10'3 (1.8-7.7); NEUTROPHILS % (AUTO) 79.8 % (42-75); PLATELET COUNT 73 X10'3 (140-440); RED BLOOD COUNT 2.61 X10'6 (4.20-5.60); RED CELL DISTRIBUTION WIDTH 14.8 % (11.5-14.5); WHITE BLOOD COUNT 5.5 X10'3 (4.5-11.0)
[2024-02-10 18:00] VITALS: BP 114/80; PULSE 96; RESP 23; TEMP 97.2; O2SAT 100
[2024-02-10] MEDS: pantoprazole 40 MG vial IV SCH (20:55)
[2024-02-10] MEDS: HYDROcodone/acetaminophen 10/325mg tab PO PRN (21:08)
[2024-02-11 04:58] LABS: BASOPHILS % (AUTO) 0.4 % (0-1); EOSINOPHILS # (AUTO) 0.2 X10'3 (0-0.9); EOSINOPHILS % (AUTO) 3.5 % (0-6); HEMATOCRIT 25.5 % (35.0-45.0); HEMOGLOBIN 8.3 g/dl (12.0-16.0); LYMPHOCYTES # (AUTO) 0.6 X10'3 (1.1-4.8); LYMPHOCYTES % (AUTO) 13.6 % (21-51); MEAN CORPUSCULAR HEMOGLOBIN 30.5 PG (27.0-31.0); MEAN CORPUSCULAR HGB CONC 32.4 g/dL (33.0-36.5); MEAN CORPUSCULAR VOLUME 94.2 FL (78-98); MONOCYTES # (AUTO) 0.4 X10'3 (0-0.9); MONOCYTES % (AUTO) 9.7 % (2-12); NEUTROPHILS # (AUTO) 3.3 X10'3 (1.8-7.7); NEUTROPHILS % (AUTO) 72.8 % (42-75); PLATELET COUNT 90 X10'3 (140-440); RED BLOOD COUNT 2.71 X10'6 (4.20-5.60); RED CELL DISTRIBUTION WIDTH 14.7 % (11.5-14.5); WHITE BLOOD COUNT 4.6 X10'3 (4.5-11.0)
[2024-02-11 05:12] LABS: MAGNESIUM 1.4 MG/DL (1.5-2.4); PHOSPHORUS 2.9 MG/DL (2.3-4.5)
[2024-02-11 06:00] VITALS: BP 110/67; PULSE 104; RESP 13; TEMP 98; O2SAT 97
[2024-02-11 08:00] VITALS: RESP 16; O2SAT 95
[2024-02-11 11:00] VITALS: BP 115/79; PULSE 91; RESP 14; TEMP 97.4; O2SAT 98
[2024-02-11] MEDS ORDERED: PROP20TA6 PO (11:29)
[2024-02-11] MEDS ORDERED: MAGN400T52 PO (11:29)
[2024-02-11] MEDS ORDERED: PANT-47 PO (11:29)
[2024-02-11] MEDS ORDERED: TEMA30CA PO (11:29)
[2024-02-11] MEDS ORDERED: CEFD300C3 PO (11:29)
[2024-02-11] MEDS: magnesium sulf-water 4G/100mL 100 ML IV ONE (12:29)
[2024-02-11 15:00] VITALS: BP 118/82; PULSE 95; RESP 16; TEMP 97.8; O2SAT 100
[2024-02-11 15:22] LABS: BASOPHILS % (AUTO) 0.1 % (0-1); EOSINOPHILS # (AUTO) 0.1 X10'3 (0-0.9); EOSINOPHILS % (AUTO) 3.1 % (0-6); HEMATOCRIT 27.7 % (35.0-45.0); LYMPHOCYTES # (AUTO) 0.5 X10'3 (1.1-4.8); LYMPHOCYTES % (AUTO) 11.4 % (21-51); MEAN CORPUSCULAR HEMOGLOBIN 31.3 PG (27.0-31.0); MEAN CORPUSCULAR HGB CONC 32.6 g/dL (33.0-36.5); MONOCYTES # (AUTO) 0.4 X10'3 (0-0.9); MONOCYTES % (AUTO) 10.4 % (2-12); NEUTROPHILS # (AUTO) 3.1 X10'3 (1.8-7.7); PLATELET COUNT 102 X10'3 (140-440); RED BLOOD COUNT 2.88 X10'6 (4.20-5.60); RED CELL DISTRIBUTION WIDTH 15.2 % (11.5-14.5); WHITE BLOOD COUNT 4.2 X10'3 (4.5-11.0)
[2024-02-12] MEDS ORDERED: thiamine 100mg tablet PO SCH (08:00)
[2024-02-13] MEDS ORDERED: folic acid 1mg tablet PO SCH (08:00)
== END 2024-02-11 17:32 | disposition home or self-care (01) | DRG 280 ==
LOC: ER 14:18 → ED HOLD 17:58 → PCU 3S 21:02
PROVIDERS: ADMIT Internal Medicine; ATTEND Internal Medicine
PROC: 30233N1 Transfusion of Nonautologous Red Blood Cells into Peripheral Vein, Percutaneous Approach (ICD-10-PCS; 2024-02-08)
PROC: 06L38CZ Occlusion of Esophageal Vein with Extraluminal Device, Via Natural or Artificial Opening Endoscopic (ICD-10-PCS; principal; 2024-02-09)
DX: K70.30 Alcoholic cirrhosis of liver without ascites (principal); I85.11 Secondary esophageal varices with bleeding; K76.6 Portal hypertension; D69.59 Other secondary thrombocytopenia; D64.9 Anemia, unspecified; E83.42 Hypomagnesemia; K31.89 Other diseases of stomach and duodenum; Z79.899 Other long term (current) drug therapy
CPT/HCPCS: 36415; 36430; 43244; 76700; 80053; 81001; 81025; 82150; 82272; 83690; 83735; 84100; 85025; 85610; 85730; 86885; 86900; 86901; 86920; 87081; 87088; 99152; 99291; A4620; A6449; G0378; J0696; J2250; J2354; J2470; J3010; J3475; J7030; J7040; P9016